=== PATIENT | male | born 1975 | race American Indian/Alaskan Native ===

== ENCOUNTER 2019-07-10 23:47 | Emergency (ER) | payer BC, OTHER ==
[2019-07-11] MEDS ORDERED: TYLENOL PO ONE (02:00)
[2019-07-11] MEDS ORDERED: IBUPROFEN PO ONE (02:00)
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
[2019-07-11 06:22] VITALS: BP 132/84
== END 2019-07-11 04:35 | disposition home or self-care (01) ==
LOC: ED 23:47
DX: M62.830 Muscle spasm of back (principal); M62.838 Other muscle spasm; V89.2XXA Person injured in unspecified motor-vehicle accident, traffic, initial encounter; Y93.89 Activity, other specified; Y92.89 Other specified places as the place of occurrence of the external cause; Y99.8 Other external cause status
CPT/HCPCS: 72040; 72100

== ENCOUNTER 2019-08-22 21:17 | Emergency (ER) | payer SELFPAY ==
--- NOTE | 2019-08-22 21:50 | Emergency Department Report ---
Blank Doc - Documentation Documentation: 44-year-old male that presents with lower back pain. This initial assessment/diagnostic orders/clinical plan/treatment(s) is/are subject to change based on patient's health status, clinical progression and re- assessment by fellow clinical providers in the ED. Further treatment and workup at subsequent clinical providers discretion. Patient/guardians urged not to elope from the ED as their condition may be serious if not clinically assessed and managed. Initial orders include: 1- Patient sent to [facility] for further evaluation and treatment
[2019-08-22 21:54] VITALS: BP 131/78
--- NOTE | 2019-08-23 00:44 | Emergency Department Report ---
ED Back Pain/Injury HPI - General Chief Complaint: Back Pain/Injury Stated Complaint: BACK PAIN Time Seen by Provider: 08/22/19 21:49 Source: patient Limitations: No Limitations - History of Present Illness Initial Comments: 44-year-old -[place] male presents to the emergency room complaining of back pain that he had since 07/05/2019 while his job. Patient reports he c ontinues to have back pain. Patient reports he is currently in physical therapy and is followed by compensation doctor. Patient reports that he was taken tramadol in his compensation doctor reported that there were not able to give any more pills as he has had a 30 day supply. Patient comes to the emergency room room wanting to have have more studies. Patient had x-rays of his back and neck 1 07/05/2019. He was diagnosed with a muscle strain and was placed on steroids Motrin Tylenol 3 and Flexeril. Patient denies any new injury. MD Complaint: back pain Onset/Timin -: month(s) Similar Symptoms Previously: Yes Severity scale (0 -10): 5 Quality: aching Consistency: intermittent Improves With: none Worsens With: none Associated Symptoms: denies other symptoms - Related Data Previous Rx's Medication Instructions Recorded Last Taken Type Cyclobenzaprine [Flexeril] 10 mg PO TID PRN #12 tablet 10/25/18 Unknown Rx Ibuprofen [Ibuprofen 800] 800 mg PO Q8H PRN #20 tablet 10/25/18 Unknown Rx Acetaminophen/Codeine [Tylenol 1 tab PO Q6H PRN #12 tab 07/11/19 Unknown Rx /Codeine # 3 tab] Ibuprofen [Motrin] 800 mg PO Q8HR PRN #20 tablet 07/11/19 Unknown Rx predniSONE [Deltasone] 40 mg PO QDAY #10 tab 07/11/19 Unknown Rx Allergies Allergy/AdvReac Type Severity Reaction Status Date / Time No Known Allergies Allergy Verified 07/10/19 23:51 ED Review of Systems ROS: Stated complaint: BACK PAIN Other details as noted in HPI ED Past Medical Hx - Past Medical History Previous Medical History?: Yes Additional medical history: Thyroid Disease - Surgical History Past Surgical History?: Yes Additional Surgical History: PLASTIC SURG ON FACE - Social History Smoking Status: Current Every Day Smoker Substance Use Type: Alcohol - Medications Home Medications: Home Medications Medication Instructions Recorded Confirmed Last Taken Type Cyclobenzaprine [Flexeril] 10 mg PO TID PRN #12 tablet 10/25/18 Unknown Rx Ibuprofen [Ibuprofen 800] 800 mg PO Q8H PRN #20 tablet 10/25/18 Unknown Rx Acetaminophen/Codeine [Tylenol 1 tab PO Q6H PRN #12 tab 07/11/19 Unknown Rx /Codeine # 3 tab] Ibuprofen [Motrin] 800 mg PO Q8HR PRN #20 tablet 07/11/19 Unknown Rx predniSONE [Deltasone] 40 mg PO QDAY #10 tab 07/11/19 Unknown Rx ED Physical Exam - General Limitations: No Limitations General appearance: alert, in no apparent distress - Head Head exam: Present: atraumatic, normocephalic - Eye Eye exam: Present: normal appearance - ENT ENT exam: Present: mucous membranes moist - Neck Neck exam: Present: normal inspection - Extremities Exam Extremities exam: Present: normal inspection, full ROM - Back Exam Back exam: Present: full ROM, muscle spasm, paraspinal tenderness. Absent: vertebral tenderness - Neurological Exam Neurological exam: Present: alert, oriented X3 - Psychiatric Psychiatric exam: Present: normal affect, normal mood - Skin Skin exam: Present: warm, dry, intact, normal color. Absent: rash ED Course Vital Signs 08/22/19 08/22/19 08/22/19 21:29 21:52 22:52 Temperature 98.6 F 98.6 F Pulse Rate 67 67 Respiratory 18 18 Rate Blood Pressure 131/78 131/78 O2 Sat by Pulse 100 100 99 Oximetry ED Medical Decision Making - Medical Decision Making 44-year-old -[place] male presents to the emergency room complaining of back pain that he had since 07/05/2019 while his job. Patient reports he continues to have back pain. Patient reports he is currently in physical therapy and is followed by compensation doctor. Patient reports that he was taken tramadol in his compensation doctor reported that there were not able to give any more pills as he has had a 30 day supply. Patient comes to the emergency room room wanting to have have more studies. Patient had x-rays of his back and neck 1 07/05/2019. He was diagnosed with a muscle strain and was placed on steroids Motrin Tylenol 3 and Flexeril. Patient denies any new injury. Discussed with patient that his x-rays done on 07/05/1995 did not show any acute findings. I discussed the patient that he was diagnosed with a muscle strain which Patient agreed that he was dx witha muscle strain. I discussed with patient that we're not able to give any further narcotics as he can take ibuprofen or naproxen for pain management. Discussed the patient is to follow up with the pain management provider I will list one in his discharge summary. Patient declined a prescription for naproxen/ibuprofen. Critical care attestation.: If time is entered above; I have spent that time in minutes in the direct care of this critically ill patient, excluding procedure time. ED Disposition Clinical Impression: Back pain, Strain, back Disposition: DC-01 TO HOME OR SELFCARE Is pt being admited?: No Does the pt Need Aspirin: No Condition: Stable Additional Instructions: Please follow-up with pain management or compensation provider. I recommend continue with the naproxen or ibuprofen for pain management. You can also incorporate with your therapy warm moist heat to your back. Recommend to do stretches in the morning. I recommend taken pain medication on a scheduled basis and then as needed. Continue with your physical therapy as prescribed by your provider. Referrals: PRIMARY CARE, [Primary Care Provider] - 3-5 Days PAIN SPECIALIST [facility] [Provider Group] - 3-5 Days PAIN CARE, [facility] [Provider Group] - 3-5 Days Forms: Work/School Release Form(ED)
== END 2019-08-23 01:51 | disposition home or self-care (01) ==
LOC: ED 21:17
DX: S39.012A Strain of muscle, fascia and tendon of lower back, initial encounter (principal); F17.200 Nicotine dependence, unspecified, uncomplicated; Z98.890 Other specified postprocedural states; X58.XXXA Exposure to other specified factors, initial encounter; Y93.89 Activity, other specified; Y92.89 Other specified places as the place of occurrence of the external cause; Y99.8 Other external cause status
CPT/HCPCS: 99282